=== PATIENT | female | born 1945 | race Caucasian/White ===

== ENCOUNTER 2019-03-24 07:34 | Outpatient (CLI) | payer MEDICARE ==
[2019-04-10] MEDS ORDERED: VITAMIN D PO (08:31)
[2019-04-10] MEDS ORDERED: SIMV20TA3 PO (08:31)
[2019-04-10] MEDS ORDERED: UBID200C35 PO (08:31)
[2019-04-10] MEDS ORDERED: AMLO-150 PO (08:31)
[2019-04-10] MEDS ORDERED: LEVO125T5 PO (08:31)
[2019-04-10] MEDS ORDERED: HYDROCHLOROTH12.5 MG PO (08:31)
[2019-04-10] MEDS ORDERED: VITAMIN B12 PO (08:31)
[2019-04-10] MEDS ORDERED: MULT-752 PO (08:31)
== END 2019-03-24 23:59 | disposition home or self-care (01) ==
LOC: CVU 07:34
PROVIDERS: ATTEND Surgery
DX: I87.2 Venous insufficiency (chronic) (peripheral) (principal)
CPT/HCPCS: 93970